=== PATIENT | female | born 1955 | race Caucasian/White ===

== ENCOUNTER 2019-05-27 10:12 | Outpatient (CLI) | payer OTHER | END 2019-05-27 10:13 | disposition critical access hospital (66) | LOC: EMS 10:12 | PROVIDERS: ATTEND Surgery | DX: S99.911A Unspecified injury of right ankle, initial encounter (principal); W01.0XXA Fall on same level from slipping, tripping and stumbling without subsequent striking against object, initial encounter; Y93.01 Activity, walking, marching and hiking; Y92.017 Garden or yard in single-family (private) house as the place of occurrence of the external cause | CPT/HCPCS: A0425; A0429 ==

== ENCOUNTER 2019-05-27 10:31 | Emergency (ER) | payer OTHER ==
[2019-05-27] MEDS ORDERED: ONDANSETRON 4 MG/2 ML VIAL IVP STA ×2 (11:02→13:57)
[2019-05-27] MEDS ORDERED: SODIUM CHLORIDE 0.9% 1,000 ML IV ONE ×2 (11:02→13:57)
[2019-05-27] MEDS ORDERED: HYDROmorphone 2 MG/ML VIAL IVP STA (11:02)
[2019-05-27] MEDS ORDERED: KETOROLAC 30 MG/ML VIAL IVP STA (11:02)
--- NOTE | 2019-05-27 11:03 | ED Physician Documentation ---
PD HPI LOWER EXT INJURY - Stated complaint Stated Complaint: GLF/ R ANKLE PX - Chief complaint Chief Complaint: Trauma Ext - History obtained from History obtained from: Patient, EMS - History of Present Illness PD HPI LOW EXT INJURY LOCATION: Right, Ankle Type of injury: Fall (slipped on wet grass and twisted ankle, with crack and pain. Unable to bear weight due to pain and noted deformity.) Timing - onset: Today (just REPEAT CHIEF) Timing - details: Abrupt onset, Still present Associated symptoms: Swelling, Other (deformity noted of ankle. No open wounds.). No: Weakness, Numbness Similar symptoms before: Has not had sx before Review of Systems Skin: denies: Abrasion (s), Laceration (s) Musculoskeletal: denies: Neck pain, Back pain Neurologic: denies: Altered mental status, Head injury PD PAST MEDICAL HISTORY - Past Medical History Cardiovascular: Hypertension Respiratory: None Neuro: None Endocrine/Autoimmune: None GI: GERD TECHNICIAN BIOLOGICAL HEALTH: None : None HEENT: None Psych: None Musculoskeletal: Osteoarthritis Derm: None - Past Surgical History Past Surgical History: Yes General: Cholecystectomy Ortho: Knee replacement - Present Medications Home Medications: Ambulatory Orders Medication Instructions Recorded Confirmed Naproxen 500 mg PO BID #20 tablet 05/27/19 Ondansetron Odt [Zofran] 4 mg TL Q6H PRN #10 tablet 05/27/19 Oxycodone HCl/Acetaminophen 1 each PO Q6H PRN #20 tablet 05/27/19 [Percocet 5-325 mg Tablet] - Allergies Allergies/Adverse Reactions: Allergies Allergy/AdvReac Type Severity Reaction Status Date / Time No Known Drug Allergies Allergy Verified 05/27/19 10:35 - Social History Does the pt smoke?: No Smoking Status: Never smoker Does the pt drink ETOH?: Yes Does the pt have substance abuse?: No - Immunizations Immunizations are current?: Yes - POLST Patient has POLST: No PD ED PE NORMAL - Vitals Vital signs reviewed: Yes - General General: Alert and oriented X 3, Well developed/nourished, Other (in pain due to ankle injury) - HEENT HEENT: Atraumatic, Other (can open mouth widely) - Neck Neck: Supple, no meningeal sign, No bony TTP - Cardiac Cardiac: RRR, No murmur - Respiratory Respiratory: Clear bilaterally, Other (no chestwall tenderness) - Abdomen Abdomen: Soft, Non tender - Derm Derm: Normal color, Warm and dry - Extremities Extremities: Other (right ankle with obvious fracture and posterior dislocation. No open wounds. Normal color and cap refill in toes. ) - Neuro Neuro: Alert and oriented X 3, No motor deficit, No sensory deficit, Normal speech Results - Vitals Vitals: Vital Signs - 24 hr 05/27/19 05/27/19 05/27/19 10:35 11:41 12:09 Temperature 36.5 C Heart Rate 90 92 96 Respiratory 20 16 16 Rate Blood Pressure 158/108 H 148/84 H 147/86 H O2 Saturation 97 96 92 05/27/19 05/27/19 05/27/19 12:15 12:35 12:38 Temperature Heart Rate 85 95 95 Respiratory 12 16 18 Rate Blood Pressure 147/86 H 141/77 H O2 Saturation 95 96 05/27/19 05/27/19 05/27/19 12:40 12:45 13:13 Temperature 36.4 C L Heart Rate 92 94 89 Respiratory 15 18 12 Rate Blood Pressure 140/86 H 125/86 H O2 Saturation 94 94 05/27/19 15:23 Temperature 36.4 C L Heart Rate 88 Respiratory 16 Rate Blood Pressure 132/72 H O2 Saturation 96 Oxygen O2 Source Room air - Rads (name of study) right ankle Radiology: Prelim report reviewed (bimalleolar fracture dislocation) post reduction Radiology: Prelim report reviewed (improved alignment. ), See rad report Procedures - Splint (location) right ankle Splint applied by: Physician Type of splint: Fiberglass, Posterior, Stirrup Other: Patient tolerated well, No complications, Neurovascular intact, Good alignment, Crutches provided - Reduction Body part reduced: Right, Ankle Fracture or dislocation: Fracture dislocation Anesthesia: Conscious sedation, Dilaudid Reduction aftercare: NV intact, Xray confirms reduction, Alignment improved, Splint applied, Crutches, Patient tolerated well - Procedural sedation Sedation prep: Informed consent, Time out completed, Last meal (4 hours prior), PE performed, AHA 1 - healthy, IV O2 monitor, RT present Sedation medications: dilaudid, propofol Patient status during sedation: Responds to tactile, Vitals remained stable, Maintained airway, Recovered uneventfully Sedation recovery: Recovered uneventfully, Back to baseline PD MEDICAL DECISION MAKING - ED course Complexity details: reviewed results, considered differential, d/w patient, d/w incident response consultant (Dr. Ching) Departure - Departure Disposition: 01 Home, Self Care Clinical Impression: Accidental fall Qualifiers: Encounter type: initial encounter Qualified Code(s): W19.XXXA - Unspecified fall, initial encounter Bimalleolar fracture of right ankle Qualifiers: Encounter type: initial encounter Fracture type: closed Qualified Code(s): S82.841A - Displaced bimalleolar fracture of right lower leg, initial encounter for closed fracture Fracture dislocation of ankle joint Qualifiers: Encounter type: initial encounter Fracture type: closed Laterality: right Qualified Code(s): S82.891A - Other fracture of right lower leg, initial encounter for closed fracture Condition: Stable Record reviewed to determine appropriate education?: Yes Instructions: ED Fx Ankle General Follow-Up: Vic Ching MD [Provider Admit Priv/Credential] - Prescriptions: Naproxen 500 mg PO BID #20 tablet Ondansetron Odt [Zofran] 4 mg TL Q6H PRN #10 tablet PRN Reason: Nausea / Vomiting Oxycodone HCl/Acetaminophen [Percocet 5-325 mg Tablet] 1 each PO Q6H PRN #20 tablet PRN Reason: pain Comments: Keep the splint clean and dry. Crutches for nonweightbearing. Call orthopedic office for follow-up appointment the end of this week or early next week. Ice elevate and rest the ankle often to keep swelling minimal. Use some anti- inflammatories such as naproxen twice daily with food. Add Tylenol or oxycodone as needed for pain. The degree of pain should diminish significantly after several days or so with the swelling and initial inflammation down. The fracture likely will need some surgical stabilization and this is often done a week or so later after the swelling face has improved. The orthopedic surgeon can talk to you about that. Forms: Activity restrictions Discharge Date/Time: 05/27/19 15:35
--- NOTE | 2019-05-27 11:45 | XRAY Report ---
Reason: injury/pain Procedure Date: 05/27/2019 Accession Number: [id number] / [id number] Procedure: XR - Ankle 3 View RT CPT Code: Final Report FULL RESULT: EXAM: RIGHT ANKLE RADIOGRAPHY EXAM DATE: 05/27/2019 11:31 AM. CLINICAL HISTORY: Injury/pain. COMPARISON: None. TECHNIQUE: 3 views. FINDINGS: Bones: Displaced fracture of the distal fibula. There is a 20 mm bony fragment projecting just inferior to the distal tibia with no donor site identified. Joints: Abnormal widening of the medial clear space. Soft Tissues: Extensive soft tissue swelling about the ankle. IMPRESSION: Displaced fracture of the distal tibia with a large fracture fragment inferior to the distal tibia with no donor site identified. Abnormal widening of the medial clear space. Ankle CT may be of benefit to fully characterize all fractures. RADIA
[2019-05-27] MEDS ORDERED: HYDROmorphone 1 MG/ML CARPUJECT IVP STA (12:04)
[2019-05-27] MEDS ORDERED: PROPOFOL 200 MG/20 ML VIAL IVP STA (12:04)
--- NOTE | 2019-05-27 13:23 | XRAY Report ---
Reason: post reduction Procedure Date: 05/27/2019 Accession Number: [id number] / [id number] Procedure: XR - Ankle 2 View RT CPT Code: Final Report FULL RESULT: EXAM: RIGHT ANKLE RADIOGRAPHY EXAM DATE: 05/27/2019 01:02 PM. CLINICAL HISTORY: Post reduction. COMPARISON: ANKLE 3 VIEW RT 05/27/2019 11:06 AM. TECHNIQUE: 2 views. FINDINGS: Bones: Lateral malleolar fracture redemonstrated. Displaced fracture of the medial malleolus with improved alignment is seen to better advantage on this examination.. Joints: Improved alignment of the tibiotalar joint. Soft Tissues: Normal. No soft tissue swelling. IMPRESSION: 1. Lateral malleolar fracture redemonstrated. 2. Displaced fracture of the medial malleolus with improved alignment is seen to better advantage on this examination. RADIA
[2019-05-27 15:23] VITALS: BP 132/72
== END 2019-05-27 15:35 | disposition home or self-care (01) ==
LOC: ED 10:31
DX: S82.841A Displaced bimalleolar fracture of right lower leg, initial encounter for closed fracture (principal); W01.0XXA Fall on same level from slipping, tripping and stumbling without subsequent striking against object, initial encounter; Y93.01 Activity, walking, marching and hiking; I10 Essential (primary) hypertension
CPT/HCPCS: 27810; 73600; 73610; 96361; 96374; 96375; 96376; 99284; 99285; J1170; 94770

== ENCOUNTER 2021-03-22 21:20 | Emergency (ER) | payer MEDICARE, OTHER ==
[2021-03-22 21:56] LABS: BASOPHILS # (AUTO) 0.1 10^3/uL (0.0-0.1); BASOPHILS % (AUTO) 0.4 %; EOSINOPHILS # (AUTO) 0.2 10^3/uL (0.0-0.7); EOSINOPHILS % (AUTO) 1.9 %; HCT - HEMATOCRIT 40.6 % (37.0-47.0); HGB - HEMOGLOBIN 13.4 g/dL (12.0-16.0); LYMPHOCYTES % (AUTO) 16.1 %; MEAN CORPUSCULAR HEMOGLOBIN 30.2 pg (27.0-31.0); MEAN CORPUSCULAR VOLUME 91.6 fL (81.0-99.0); MEAN PLATELET VOLUME 9.6 fL (7.9-10.8); MONOCYTES # (AUTO) 1.2 10^3/uL (0.0-1.0); MONOCYTES % (AUTO) 9.5 %; NEUTROPHILS # (AUTO) 8.9 10^3/uL (1.5-6.6); NEUTROPHILS % (AUTO) 71.8 %; PLT - PLATELET COUNT 399 10^3/uL (130-450); RED BLOOD COUNT 4.43 10^6/uL (4.20-5.40); RED CELL DISTRIBUTION WIDTH 12.1 % (12.0-15.0); WHITE BLOOD COUNT 12.4 x10^3/uL (4.8-10.8)
[2021-03-22 22:07] LABS: ALBUMIN 3.8 g/dL (3.2-5.5); ALBUMIN/GLOBULIN RATIO 1.1 (1.0-2.2); BILIRUBIN,TOTAL 0.8 mg/dL (0.2-1.0); CREATININE 0.6 mg/dL (0.4-1.0); TOTAL PROTEIN 7.3 g/dL (6.7-8.2)
[2021-03-22 22:42] LABS: BILIRUBIN,URINE NEGATIVE (NEGATIVE); GLUCOSE, URINE (UA) NEGATIVE (NEGATIVE); KETONES,URINE (UA) NEGATIVE (NEGATIVE); LEUKOCYTE ESTERASE, URINE SMALL (NEGATIVE); NITRITE,URINE NEGATIVE (NEGATIVE); OCCULT BLOOD,URINE NEGATIVE (NEGATIVE); PROTEIN,URINE NEGATIVE (NEGATIVE); UROBILINOGEN,URINE 0.2 (NORMAL) E.U./dL (NORMAL)
[2021-03-22 22:45] LABS: CLARITY,URINE CLEAR (CLEAR)
[2021-03-22 22:51] LABS: BACTERIA,URINE Few /HPF (None Seen); RBC,URINE 0-5 /HPF (0-5); SQUAMOUS EPITHELIAL CELL,UR FEW Squamous (<= Few)
--- NOTE | 2021-03-22 22:51 | XRAY Report ---
PROCEDURE: Chest 2 View X-Ray INDICATIONS: fever, cough TECHNIQUE: 2 view(s) of the chest. COMPARISON: None. FINDINGS: Surgical changes and devices: Surgical clips in the right upper abdomen compatible with prior cholecy stectomy.. Lungs and pleura: No pleural effusions or pneumothorax. Minimal streaky/linear opacities of the bila teral lung bases likely representing atelectasis. No focal consolidations. Lungs are otherwise clear. Mediastinum: Mediastinal contours are normal. Heart size is normal. Bones and chest wall: No suspicious bony abnormalities. Soft tissues appear unremarkable. IMPRESSION: Minimal linear/streaky bibasilar opacities favored to represent atelectasis. Otherwise, no acute cardiopulmonary abnormalities. Reviewed by: Seferino Lora MD on 03/22/2021 10:49 PM PDT Approved by: Seferino Lora MD on 03/22/2021 10:49 PM PDT Station ID: [id number]
--- NOTE | 2021-03-22 22:57 | ED Physician Documentation ---
PD HPI FEVER - Stated complaint Stated Complaint: POST OP FEVER, FMALE - Chief complaint Chief Complaint: UTI - History obtained from History obtained from: Patient - History of Present Illness Timing - onset: Today (this evening) Timing details: Abrupt onset Pain level max: 0 Pain level now: 0 Associated symptoms: Dry cough (mild, occasional MORTARMAN cough since being the procedure), Urinary symptoms (sensation of incomplete voiding). No: Chills, Sweats, Nasal congestion, Sore throat, Productive cough, Dyspnea, Abdominal pain, NVD Recently seen: Surgery - Additional information Additional information: patient underwent surgery for hiatal hernia one week ago, which involved an overnight post-operative stay (U.W.). This evening, she developed chills and thus measured her temperature with result of 101.3 She took a dose of ibuprofen [employer]. She has no other overt signs/symptoms of infection. In ROS, she says she has had mild, nonproductive cough since the surgery, as well as sensation of incomplete voiding when urinating (syed catheter had been placed for the procedure but was removed prior to d/c from the hospital). She is COVID vaccinated Review of Systems Constitutional: reports: Fever, Chills. denies: Myalgias, Fatigue, Sweats Nose: denies: Sinus pressure / pain Throat: denies: Sore throat Cardiac: reports: Reviewed and negative Respiratory: reports: Cough. denies: Dyspnea, Hemoptysis, Wheezing GI: reports: Reviewed and negative : reports: Other (sensation of incomplete voiding). denies: Frequency, Hesitancy, Unable to Void, Hematuria Musculoskeletal: reports: Reviewed and negative PD PAST MEDICAL HISTORY - Past Medical History Cardiovascular: Hypertension Respiratory: None Neuro: None Endocrine/Autoimmune: None GI: GERD AMBULANCE DISPATCHER: None : None HEENT: None Psych: None Musculoskeletal: Osteoarthritis Derm: None - Past Surgical History Past Surgical History: Yes General: Cholecystectomy Ortho: Knee replacement - Present Medications Home Medications: Ambulatory Orders Medication Instructions Recorded Confirmed Lisinopril [Zestril] 20 mg PO DAILY 03/22/21 03/22/21 Nitrofurantoin [Macrobid] 100 mg PO BID #9 cap 03/22/21 - Allergies Allergies/Adverse Reactions: Allergies Allergy/AdvReac Type Severity Reaction Status Date / Time No Known Drug Allergies Allergy Verified 05/27/19 10:35 - Social History Does the pt smoke?: No Smoking Status: Never smoker Does the pt drink ETOH?: Yes Does the pt have substance abuse?: No - Immunizations Immunizations are current?: Yes - POLST Patient has POLST: No PD ED PE NORMAL - Vitals Vital signs reviewed: Yes - General General: Alert and oriented X 3, No acute distress, Well developed/nourished - HEENT HEENT: Moist mucous membranes, Pharynx benign - Neck Neck: Supple, no meningeal sign - Cardiac Cardiac: RRR, No murmur, No gallop, No rub - Respiratory Respiratory: No respiratory distress, Clear bilaterally - Abdomen Abdomen: Normal bowel sounds, Soft, Non tender, Non distended - Back Back: No CVA TTP - Extremities Extremities: No edema Results - Vitals Vitals: Oxygen O2 Source Room air - Labs Labs: Microbiology 03/22/21 22:33 Urine Culture - Final Urine,Clean Catch >100,000 COLONIES/ML Polymicrobial growth including potential pathogens. This is suggestive of skin or other contamination. Laboratory Tests 03/22/21 03/22/21 03/22/21 21:48 21:48 21:48 WBC 12.4 H RBC 4.43 Hgb 13.4 Hct 40.6 MCV 91.6 MCH 30.2 MCHC 33.0 RDW 12.1 Plt Count 399 MPV 9.6 Neut # (Auto) 8.9 H Lymph # (Auto) 2.0 [place] # (Auto) 1.2 H Eos # (Auto) 0.2 Baso # (Auto) 0.1 Absolute Nucleated RBC 0.00 Nucleated RBC % 0.0 Sodium 136 Potassium 4.0 Chloride 103 Carbon Dioxide 21 Anion Gap 12.0 BUN 10 Creatinine 0.6 Estimated GFR (MDRD) 100 Glucose 161 H Lactic Acid 1.8 Calcium 9.0 Total Bilirubin 0.8 AST 18 ALT 72 H Alkaline Phosphatase 102 Total Protein 7.3 Albumin 3.8 Globulin 3.5 Albumin/Globulin Ratio 1.1 Lipase 30 Urine Color Urine Clarity Urine pH Ur Specific [place] Urine Protein Urine Glucose (UA) Urine Ketones Urine Occult Blood Urine Nitrite Urine Bilirubin Urine Urobilinogen Ur Leukocyte Esterase Urine RBC Urine WBC Ur Squamous Epith Cells Urine Bacteria Ur Microscopic Review Urine Culture Comments Nasal Adenovirus (PCR) Nasal B. parapertussis DNA (PCR) Nasal Coronavir 229E PCR Nasal Coronavir HKU1 PCR Nasal Coronavir NL63 PCR Nasal Coronavir OC43 PCR Nasal Enterovir/Rhinovir PCR Nasal Influenza B PCR Nasal Influenza A PCR Nasal Parainfluen 1 PCR Nasal Parainfluen 2 PCR Nasal Parainfluen 3 PCR Nasal Parainfluen 4 PCR Nasal RSV (PCR) Nasal B.pertussis DNA PCR Nasal C.pneumoniae (PCR) Mykel Human Metapneumo PCR Nasal M.pneumoniae (PCR) Nasal SARS-CoV-2 (PCR) 03/22/21 03/22/21 22:33 22:33 WBC RBC Hgb Hct MCV MCH MCHC RDW Plt Count MPV Neut # (Auto) Lymph # (Auto) [place] # (Auto) Eos # (Auto) Baso # (Auto) Absolute Nucleated RBC Nucleated RBC % Sodium Potassium Chloride Carbon Dioxide Anion Gap BUN Creatinine Estimated GFR (MDRD) Glucose Lactic Acid Calcium Total Bilirubin AST ALT Alkaline Phosphatase Total Protein Albumin Globulin Albumin/Globulin Ratio Lipase Urine Color YELLOW Urine Clarity CLEAR Urine pH 6.0 Ur Specific [place] 1.010 Urine Protein NEGATIVE Urine Glucose (UA) NEGATIVE Urine Ketones NEGATIVE Urine Occult Blood NEGATIVE Urine Nitrite NEGATIVE Urine Bilirubin NEGATIVE Urine Urobilinogen 0.2 (NORMAL) Ur Leukocyte Esterase SMALL H Urine RBC 0-5 Urine WBC 6-10 H Ur Squamous Epith Cells FEW Squamous Urine Bacteria Few Ur Microscopic Review INDICATED Urine Culture Comments INDICATED Nasal Adenovirus (PCR) NOT DETECTED Nasal B. parapertussis DNA (PCR) NOT DETECTED Nasal Coronavir 229E PCR NOT DETECTED Nasal Coronavir HKU1 PCR NOT DETECTED Nasal Coronavir NL63 PCR NOT DETECTED Nasal Coronavir OC43 PCR NOT DETECTED Nasal Enterovir/Rhinovir PCR NOT DETECTED Nasal Influenza B PCR NOT DETECTED Nasal Influenza A PCR NOT DETECTED Nasal Parainfluen 1 PCR NOT DETECTED Nasal Parainfluen 2 PCR NOT DETECTED Nasal Parainfluen 3 PCR NOT DETECTED Nasal Parainfluen 4 PCR NOT DETECTED Nasal RSV (PCR) NOT DETECTED Nasal B.pertussis DNA PCR NOT DETECTED Nasal C.pneumoniae (PCR) NOT DETECTED Mykel Human Metapneumo PCR NOT DETECTED Nasal M.pneumoniae (PCR) NOT DETECTED Nasal SARS-CoV-2 (PCR) NOT DETECTED - Rads (name of study) chest xray Radiology: Prelim report reviewed, See rad report PD MEDICAL DECISION MAKING - ED course Complexity details: reviewed results, re-evaluated patient, considered differential, d/w patient ED course: mild leukocytosis (12.4) with normal lactate and other blood tests are unremarkable. COVID PCR respiratory panel swab is all negative. No acute findings on CXR (possible minimal bilateral atelectasis). Afebrile during ED stay and in NAD. Her UA has 6-10 wbc/hpf which is not particularly s/o UTI, but given her c/o sensation of incomplete voiding, it is possible this represents early UTI and thus will cover with 5 days of macrobid. It would seem very unlikely that such results would account for her fever and thus tonights tests do not reveal nor suggest the source of her fever. Results reviewed with patient, return precautions discussed, encouraged to follow up with her primary care provider. Departure - Departure Disposition: Home, Self Care Clinical Impression: Urinary tract infection Qualifiers: Urinary tract infection type: acute cystitis Hematuria presence: without hematuria Qualified Code(s): N30.00 - Acute cystitis without hematuria Condition: Good Instructions: ED UTI Cystitis Female Follow-Up: Violet Dos Santos MD [Primary Care Provider] - Prescriptions: Nitrofurantoin [Macrobid] 100 mg PO BID #9 cap Comments: A prescription for nitrofurantoin (antibiotic) has been electronically submitted to [facility] pharmacy in [place]. As we discussed, your lab tests are reassuring, with a minimally elevated white blood cell count and urinalysis results that are mildly suggestive of a urinary tract infection. I doubt your fever is due to the urinary tract infection, as the results of the urinalysis are only mildly abnormal. Please return if your symptoms worse, and follow up with your primary care provider for reevaluation Discharge Date/Time: 03/22/21 23:53
[2021-03-22 23:35] LABS: B. PARAPERTUSSIS- RESP PCR PAN NOT DETECTED; B. PERTUSSIS- RESP PCR PANEL NOT DETECTED; C. PNEUMONIAE- RESP PCR PANEL NOT DETECTED; CORONAVIRUS 229E-RESP PCR NOT DETECTED; CORONAVIRUS HKU1-RESP PCR NOT DETECTED; CORONAVIRUS NL63-RESP PCR NOT DETECTED; CORONAVIRUS OC43-RESP PCR NOT DETECTED; HUMAN METAPNEUMOVIRUS NOT DETECTED; INFLUENZA A- RESP PCR PANEL NOT DETECTED; INFLUENZA B - RESP PCR PANEL NOT DETECTED; M. PNEUMONIAE- RESP PCR PANEL NOT DETECTED; PARAINFLUENZA VIRUS 1 NOT DETECTED; PARAINFLUENZA VIRUS 2 NOT DETECTED; PARAINFLUENZA VIRUS 3 NOT DETECTED; PARAINFLUENZA VIRUS 4 NOT DETECTED; RHINOVIRUS/ENTEROVIRUS NOT DETECTED; RSV- RESP PCR PANEL NOT DETECTED; SARS-CoV-2 -RESP PCR PANEL NOT DETECTED
[2021-03-22 23:36] VITALS: BP 131/80
[2021-03-22] MEDS ORDERED: NITROFURANTOIN MACRO 100 MG CAPSULE PO STA (23:43)
== END 2021-03-22 23:53 | disposition home or self-care (01) ==
LOC: ED 21:20
DX: N30.00 Acute cystitis without hematuria (principal); Z20.822 Contact with and (suspected) exposure to COVID-19; I10 Essential (primary) hypertension
CPT/HCPCS: 36415; 71046; 80053; 81001; 83605; 83690; 85025; 87086; 87631; 99282; 99284; A9270; 0202U; 81003

== ENCOUNTER 2021-10-03 09:20 | Outpatient (CLI) | payer MEDICARE, OTHER | END 2021-10-03 09:21 | disposition home or self-care (01) | LOC: LAB.S 09:20 | DX: R19.7 Diarrhea, unspecified (principal) | CPT/HCPCS: 83993; 87177; 87328 ==